=== PATIENT | male | born 1990 | race Caucasian/White ===

== ENCOUNTER 2018-07-09 20:58 | Emergency (ER) | payer SELFPAY ==
[~2018-07-09] VITALS: Ht 182.9 cm; Wt 93.0 kg
[2018-07-09 23:22] VITALS: BP 145/93
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
[2018-07-09] MEDS ORDERED: IBUPROFEN 600 MG TABLET PO ONE (23:46)
[2018-07-09] MEDS: IBUPROFEN 600 MG TABLET PO ONE (23:47)
== END 2018-07-09 23:57 | disposition home or self-care (01) ==
LOC: ER 20:58
DX: M54.5 Low back pain (principal); V49.49XA Driver injured in collision with other motor vehicles in traffic accident, initial encounter; Y93.89 Activity, other specified; Y92.410 Unspecified street and highway as the place of occurrence of the external cause; Y99.8 Other external cause status